=== PATIENT | female | born 1990 | race Caucasian/White ===

== ENCOUNTER 2018-02-12 03:17 | Emergency (ER) | payer OTHER ==
[~2018-02-12] VITALS: Ht 165.1 cm; Wt 70.8 kg
[2018-02-12 04:36] VITALS: BP 115/78
[2018-02-12] MEDS ORDERED: DIAZEPAM 10 MG TABLET ONE (04:56)
[2018-02-12] MEDS: DIAZEPAM 10 MG TABLET PO ONE (04:59)
== END 2018-02-12 05:08 | disposition home or self-care (01) ==
LOC: ER 03:20
DX: F41.9 Anxiety disorder, unspecified (principal); F31.9 Bipolar disorder, unspecified
CPT/HCPCS: A4606; Z7610